=== PATIENT | male | born 1965 | race Caucasian/White ===

== ENCOUNTER → 2021-02-01 15:32 | Outpatient (CLI) | payer OTHER, SELFPAY | PROVIDERS: PCP Family Medicine; Visit Provider Family Medicine | DX: Z20.822 Contact with and (suspected) exposure to COVID-19 (principal) | CPT/HCPCS: U0003 ==

== ENCOUNTER 2024-12-09 07:17 | Day surgery (SDC) | payer OTHER, SELFPAY ==
[2024-12-09 08:12] VITALS: BMI 33.8
[2024-12-09 08:16] VITALS: BP 156/82; PULSE 76; RESP 18; TEMP 36.1; O2SAT 96
[2024-12-09] MEDS: LACTATED RINGERS 1000ML 1,000 ML 50 ML IV (08:28)
[2024-12-09 08:35] LABS: POC Glucose,Bedside 90 (70-110)
--- NOTE | 2024-12-09 09:22 | P.HP_ITS ---
History of Present Illness *Admission Date: 12/09/24 *Reason for visit:: Screening/family history/personal history of colon polyps *History of present illness: Mr. Stone is a 59-year-old gentleman who is here for high risk screening/surveillance colonoscopy. His last colonoscopy was 10 years ago. His mother had colon cancer. He had a polyp removed at last colonoscopy. The examination is deemed medically necessary for surveillance colonoscopy. The patient has been seen, interviewed and examined prior to the procedure by both myself and the anesthesia provider. [facility] Disclaimer: The information contained in this section may have been updated after the patient was seen, as this information can be updated by other users. Medical History (Updated 12/09/24 @ 08:21 by Nicky Leigh RN) Enlarged prostate History of COVID-19 Diabetes Back problem Family history of punctured lung Surgical History H/O heart surgery History of right heart catheterization Family History Mother Cancer Other Diabetes Social History (Updated 12/09/24 @ 08:21 by Nicky Leigh RN) Smoking Status: Never smoker alcohol intake: never substance use type: denies use current occupational status: employed Travel in the last 8 weeks: None caffeine: Yes Have you lived/traveled outside [place] in past 30 days?: No Contact w/someone who lives/traveled outside [place] past 30 days?: No Exposure to someone with infectious disease in past 14 days?: No Do you have a fever (greater than 100.4 F or 38 C)?: No Have you tested positive for COVID-19: Yes Exposed to someone with COVID-19 in past 14 days?: No Do you have a sore throat?: No Do you have a cough?: No Do you have any weakness?: No Are you experiencing any nausea/vomitting?: No Do you have any diarrhea?: No Are you experiencing any unusual bleeding?: No Do you have any muscle aches/pain?: No Do you have any abdominal pain?: No Are you experiencing loss of taste or smell?: No Review of Systems Review of Systems Review of systems (narrative): Negative *Cardiovascular Comments: Negative *Gastrointestinal Comments: Negative *Genitourinary Comments: Negative *Musculoskeletal Comments: Negative *Neurologic Comments: Negative Meds Home Medications and Allergies Home Medications ?Medication ?Instructions ?Recorded ?Confirmed ?Type empagliflozin 25 mg-linagliptin 5 1 tab PO DAILY 09/22/24 12/09/24 History mg tablet (Glyxambi) tamsulosin 0.4 mg capsule 0.4 mg PO DAILY 09/22/24 12/09/24 History sodium,potassium,mag sulfates 17.5 See Rx Instructions PO .COMPLEX 10/09/24 12/09/24 Rx gram-3.13 gram-1.6 gram oral soln #354 mL (Suprep Bowel Prep Kit) New Prescriptions to Start Prescriptions: Allergies Allergy/AdvReac Type Severity Reaction Status Date / Time No Known Allergies Allergy Verified 12/09/24 08:14 Exam Data for Last 24 hours Vital signs and Labs for Last 24 Hours: Temp Pulse Resp BP Pulse Ox O2 Del Method 97.0 F L 76 18 156/82 H 96 Room Air 12/09/24 08:16 12/09/24 08:16 12/09/24 08:16 12/09/24 08:16 12/09/24 08:16 12/09/24 08:16 Laboratory Results - last 24 hr 12/09/24 08:22: POC Glucose 90 I & O for Last 24 hours: Intake & Output 12/06/24 12/07/24 12/08/24 12/09/24 23:59 23:59 23:59 23:59 Weight 249 lb 15.997 oz *Routine HEENT Exam Head: Present normocephalic Eye: Present EOMI and PERRL ENT: Present mucous membranes moist *Routine Neck Exam Neck: Present supple *Routine Respiratory Exam Respiratory: Present CTA bilaterally *Routine Cardiovascular Exam Cardiovascular: Present RRR *Routine Abdominal Exam Abdominal: Present soft and normoactive bowel sounds; Absent tenderness *Routine Rectal Exam Rectal:: deferred *Routine Genitalia Exam Genitalia:: deferred *Routine Extremities Exam Extremities: Absent cyanosis, clubbing or edema *Routine Skin Exam Skin: Present warm; Absent rash *Routine Neurological Exam Neurological: Present alert and oriented X3 Assessment and Plan *Assessment and plan (1) History of colon polyps: Status: Acute Category: Medical Code(s): Z86.0100 - Personal history of colon polyps, unspecified (2) Family history of colon cancer: Status: Acute Category: Medical Code(s): Z80.0 - Family history of malignant neoplasm of digestive organs Plan A/P: 1. Family history of colon cancer with personal history of colon polyps and last colonoscopy 10 years ago is the preprocedural diagnosis. The patient will be anesthetized/sedated using MAC sedation. The patient has been seen and examined. Cardiac and lung assessment prior to the examination is stable. Proceed with planned surveillance colonoscopy
--- NOTE | 2024-12-09 09:24 | EXP.ANES.CKL ---
[facility] Disclaimer: The information contained in this section may have been updated after the patient was seen, as this information can be updated by other users. Medical History (Updated 12/09/24 @ 08:21 by Nicky Leigh RN) Enlarged prostate History of COVID-19 Diabetes Back problem Family history of punctured lung Surgical History H/O heart surgery History of right heart catheterization Family History Mother Cancer Other Diabetes Social History (Updated 12/09/24 @ 08:21 by Nicky Leigh RN) Smoking Status: Never smoker alcohol intake: never substance use type: denies use current occupational status: employed Travel in the last 8 weeks: None caffeine: Yes Have you lived/traveled outside [place] in past 30 days?: No Contact w/someone who lives/traveled outside [place] past 30 days?: No Exposure to someone with infectious disease in past 14 days?: No Do you have a fever (greater than 100.4 F or 38 C)?: No Have you tested positive for COVID-19: Yes Exposed to someone with COVID-19 in past 14 days?: No Do you have a sore throat?: No Do you have a cough?: No Do you have any weakness?: No Are you experiencing any nausea/vomitting?: No Do you have any diarrhea?: No Are you experiencing any unusual bleeding?: No Do you have any muscle aches/pain?: No Do you have any abdominal pain?: No Are you experiencing loss of taste or smell?: No [facility] Anesthesia Checklist Patient Identification Patient Identification: Arm Band Structural Data Admitted From: Home Planned Operative Procedure/s: Colonoscopy Consent for Planned Operative Procedure(s) Verified: Yes Verified Documents: Surgical Consent and History and Physical NPO Status Verified Time NPO: 00:00 Additional verifications Anesthesia Reactions: No Airway Assessment Mallampati Score:: Class II C-Spine Mobility Assessed: Yes TMJ Mobility Assessed: Yes Dentition: Good Dentition Neurological Assessment Level of Consciousness: Awake, Alert and Appropriate Anesthesia Plan Anesthesia Risk discussed: Yes Anesthesia Plan: Verified ASA Class: II Anesthesia Type: MAC
[2024-12-09 09:28] VITALS: O2SAT 99
--- NOTE | 2024-12-09 09:35 | HMH.PROCNOTE ---
[facility] Procedure Note Date: 12/09/24 Time: 09:56 Procedure Note:: Colonoscopy Procedure Report: Colonoscopy with cold snare polypectomy Endoscopist: Tommie Thakkar II, MD Referring physician: Jordan Monsivais MD Date of Procedure: December 09, 2024 Equipment: Olympus 190 variable stiffness pediatric colonoscope Sedation: MAC sedation Indication: Mr. Stone is a 59-year-old gentleman who is here for screening colonoscopy. His last colonoscopy he states was when he was young more than 25 years ago. He reports no abdominal pain, weight loss, change in his bowel habits or rectal bleeding. He does state that his mother had colon cancer in her late 80s or early 90s. He does get some gassiness and bloating. He did see a tinge of blood from the bowel preparation from hemorrhoids. He does have an enlarged prostate and had a prostate ultrasound that was otherwise normal. Procedure: Prior to the procedure, a history and physical exam was performed, and patient's medications and allergies were reviewed. The risks, benefits and alternatives of the sedation and procedure were discussed with the patient. All questions were answered and informed consent was obtained. The patient was brought to the procedure room. Patient identification and proposed procedure were verified by the physician and the nurse. The patient was placed in a left lateral decubitus position and the scope was passed under direct vision. Throughout the procedure, the patient's blood pressure, pulse, and oxygen saturations were monitored continuously. The colonoscopy was accomplished without difficulty. The patient tolerated the procedure well. Findings: On digital rectal examination there was normal rectal tone. There were no external hemorrhoids. The prostate was 2-3+, smooth, soft, symmetric without nodules. The colonoscope was introduced through the anal canal to the rectum and advanced to the cecum. The ileocecal valve and appendiceal orifice were identified. The scope was advanced a short distance into the ileum which appeared grossly normal. The scope was then withdrawn into the colon. There were 11 colon polyps (ascending x 1 (9 mm), transverse x 2 (4 and 6 mm), descending x 1 (5 mm), sigmoid x 5 (4, 4, 5, 6 and 7 mm) and rectum x 2 (5 and 7 mm)). These were all removed via cold snare polypectomy. The remaining cecum, ascending and transverse colon and mucosa were grossly normal. There were scattered diverticuli throughout the descending and sigmoid colon (LEFT colon). The rectum itself was normal. Upon retroflexion within the rectum there were grade 2 internal hemorrhoids. The preparation was excellent throughout with [place] Preparation Score of 9. The cecal time was 16 minutes. Impression: 1. Colonic polyps x 11 2. Left-sided diverticulosis 3. Grade 2 internal hemorrhoids Plan: I will follow-up the polyp histology and recommend repeat surveillance colonoscopy again in 3 years based upon pathology. I would encourage psyllium bulking fiber supplementation on a long-term daily maintenance basis.
[2024-12-09 09:58] VITALS: BP 104/59; PULSE 70; RESP 20; TEMP 36.7; O2SAT 92
[2024-12-09 10:08] VITALS: BP 103/60; PULSE 69; RESP 20; TEMP 36.7; O2SAT 95
[2024-12-09 10:18] VITALS: BP 111/71; PULSE 70; RESP 20; O2SAT 95
[2024-12-09 10:28] VITALS: BP 130/78; PULSE 68; RESP 20; O2SAT 95
== END 2024-12-09 10:49 | disposition home or self-care (01) ==
PROVIDERS: PCP Family Medicine; Visit Provider Internal Medicine Gastroenterology
PROC: (CPT 45385; principal; 2024-12-09 09:00)
DX: Z12.11 Encounter for screening for malignant neoplasm of colon (principal); K63.5 Polyp of colon; K57.30 Diverticulosis of large intestine without perforation or abscess without bleeding; K64.1 Second degree hemorrhoids; Z86.0100 Personal history of colon polyps, unspecified; Z80.0 Family history of malignant neoplasm of digestive organs
CPT/HCPCS: 45385; 82962; J7120